=== PATIENT | male | born 1975 | race American Indian/Alaskan Native ===

== ENCOUNTER 2021-09-23 10:27 | Emergency (ER) | payer OTHER ==
[2021-09-23] MEDS ORDERED: CYCLOBENZAPRINE 10 MG TAB PO ONE (15:27)
[2021-09-23] MEDS ORDERED: predniSONE 20 MG TAB PO ONE (15:27)
[2021-09-23] MEDS ORDERED: KETOROLAC 10 MG TAB PO ONE (15:27)
--- NOTE | 2021-09-23 16:02 | Emergency Department Report ---
ED Neck Pain/Injury HPI - General Chief Complaint: Extremity Problem,Nontraumatic Stated Complaint: NECK/SHOULDER PAIN Time Seen by Provider: 09/23/21 15:12 Mode of arrival: Ambulatory Limitations: No Limitations - History of Present Illness Initial Comments: 46-year-old black male with a past medical history of HIV presents to the emergency department for evaluation of 2-day history of left neck pain. He states that 2 days ago he had sudden onset of pain and tightness to his left neck that has gotten progressively worse and has been persistent since then. He states that he also has pain down into his shoulder area, and pain is worse with certain movements and palpation. He denies injury or trauma, fever, nausea, vomiting, or headache. He states that pain at its worst is 8 out of 10. MD Complaint: neck pain -: Gradual, days(s) (2) Place: work Radiation: left lateral Severity: severe Severity scale (0 -10): 8 Quality: aching Worsens With: movement of neck Associated Symptoms: denies: headache, fever, numbness, tingling, weakness, vertigo, difficulty swallowing, nausea, vomiting Treatments Prior to Arrival: none - Related Data Previous Rx's Medication Instructions Recorded Last Taken Type Cyclobenzaprine [Flexeril] 10 mg PO TID PRN #30 tab 09/23/21 Unknown Rx Lidocaine [Lidoderm] 1 each TP DAILY PRN #10 patch 09/23/21 Unknown Rx Naproxen 500 mg PO BID PRN #14 tab 09/23/21 Unknown Rx Allergies Allergy/AdvReac Type Severity Reaction Status Date / Time No Known Allergies Allergy Verified 09/23/21 15:38 ED Review of Systems ROS: Stated complaint: NECK/SHOULDER PAIN Other details as noted in HPI Comment: All other systems reviewed and negative Constitutional: denies: chills, fever Respiratory: denies: shortness of breath Cardiovascular: denies: chest pain, palpitations Gastrointestinal: denies: abdominal pain, nausea, vomiting Genitourinary: denies: urgency, dysuria Musculoskeletal: denies: back pain Neurological: denies: headache, weakness, numbness, paresthesias, abnormal gait, vertigo ED Past Medical Hx - Medications Home Medications: Home Medications Medication Instructions Recorded Confirmed Last Taken Type Cyclobenzaprine [Flexeril] 10 mg PO TID PRN #30 tab 09/23/21 Unknown Rx Lidocaine [Lidoderm] 1 each TP DAILY PRN #10 patch 09/23/21 Unknown Rx Naproxen 500 mg PO BID PRN #14 tab 09/23/21 Unknown Rx ED Physical Exam - General Limitations: No Limitations General appearance: alert, in no apparent distress - Head Head exam: Present: atraumatic, normocephalic, normal inspection - Eye Eye exam: Present: normal appearance. Absent: conjunctival injection - Neck Neck exam: Present: normal inspection, tenderness (Left side only). Absent: full ROM, lymphadenopathy - Expanded Neck Exam Expanded Neck exam: Absent: midline deformity, anterior neck swelling - Respiratory Respiratory exam: Present: normal lung sounds bilaterally. Absent: respiratory distress, wheezes, rales, rhonchi, stridor, chest wall tenderness - Cardiovascular Cardiovascular Exam: Present: regular rate, normal heart sounds - GI/Abdominal GI/Abdominal exam: Present: soft, normal bowel sounds. Absent: distended, tenderness, guarding, rebound, rigid - Extremities Exam Extremities exam: Present: normal inspection, normal capillary refill - Expanded Upper Extremity Exam Left Shoulder Exam: Present: tenderness. Absent: full ROM, swelling, abrasion, laceration, ecchymosis, deformity, crepidus, dislocation, tenderness over AC joint Upper Arm exam: Present: normal inspection Elbow exam: Present: normal inspection Forearm Wrist exam: Present: normal inspection Vascular: Present: normal capillary refill, radial pulse. Absent: vascular compromise, Pallo - Back Exam Back exam: Present: normal inspection. Absent: vertebral tenderness - Neurological Exam Neurological exam: Present: alert, oriented X3 - Psychiatric Psychiatric exam: Present: normal affect, normal mood - Skin Skin exam: Present: warm, dry, intact, normal color ED Course Vital Signs 09/23/21 11:30 Temperature 98.0 F Pulse Rate 99 H Blood Pressure 103/78 [Right] O2 Sat by Pulse 100 Oximetry ED Medical Decision Making - Medical Decision Making 46-year-old black male with a past medical history of HIV presents to the emergency department for evaluation of 2-day history of left neck pain. He states that 2 days ago he had sudden onset of pain and tightness to his left neck that has gotten progressively worse and has been persistent since then. He states that he also has pain down into his shoulder area, and pain is worse with certain movements and palpation. He denies injury or trauma, fever, nausea, vomiting, or headache. He states that pain at its worst is 8 out of 10. Physical exam unremarkable. Pain likely secondary to musculoskeletal. Patient be treated with one-time dose of prednisone, Toradol, and Flexeril while in the emergency department and discharged home with naproxen, Flexeril, and Lidoderm patches to use as needed. He is advised to take medication as directed and follow-up with his primary care provider if no improvement or worsening symptoms. He is advised to return to the emergency department as needed. He verbalizes understanding of and agreement with plan of care. Critical care attestation.: If time is entered above; I have spent that time in minutes in the direct care of this critically ill patient, excluding procedure time. ED Disposition Clinical Impression: Neck pain Disposition: 01 HOME / SELF CARE / HOMELESS Is pt being admited?: No Does the pt Need Aspirin: No Condition: Stable Instructions: Neck Exercises, Musculoskeletal Pain Additional Instructions: Take medications as directed. Follow-up with your primary care provider if no improvement or worsening symptoms. Return to the emergency department as needed. Prescriptions: Cyclobenzaprine [Flexeril] 10 mg PO TID PRN #30 tab PRN Reason: Muscle Spasm Lidocaine [Lidoderm] 1 each TP DAILY PRN #10 patch PRN Reason: Pain, Moderate (4-6) Naproxen 500 mg PO BID PRN #14 tab PRN Reason: Pain, Mild (1-3) Referrals: EM BIANCHI MD [Staff Physician] - 3-5 Days Forms: Work/School Release Form(ED) Time of Disposition: 16:06
[2021-09-23 16:47] VITALS: BP 120/86
== END 2021-09-23 23:40 | disposition home or self-care (01) ==
LOC: ED 10:27
DX: M54.2 Cervicalgia (principal)
CPT/HCPCS: 99282